=== PATIENT | female | born 1990 | race African-American/Black ===

== ENCOUNTER 2018-03-30 19:09 | Emergency (ER) | payer MEDICAID ==
[~2018-03-30] VITALS: Ht 167.6 cm; Wt 48.0 kg
[2018-03-30] MEDS ORDERED: SODIUM CHLORIDE 0.9% 1,000 ML IV ONE (20:45)
[2018-03-30] MEDS ORDERED: ONDANSETRON HCL 4MG/2ML VIAL IV ONE (20:45)
[2018-03-30 21:07] LABS: CHLORIDE 100 mEq/L (98-107)
[2018-03-30 21:14] LABS: BETA HYDROXYBUTYRATE 0.7 mMol/L (0.0-0.3)
[2018-03-31] MEDS ORDERED: POTASSIUM CHLORIDE 20MEQ TABLET SR PO SCH (00:36)
[2018-03-31] MEDS ORDERED: ONDANSETRON 4MG ODT PO ONE (00:45)
[2018-03-31 01:44] VITALS: BP 101/59
== END 2018-03-31 01:44 | disposition home or self-care (01) ==
LOC: ER 20:12
DX: O21.0 Mild hyperemesis gravidarum (principal); O26.891 Other specified pregnancy related conditions, first trimester; R10.13 Epigastric pain; Z3A.01 Less than 8 weeks gestation of pregnancy; Z88.0 Allergy status to penicillin
CPT/HCPCS: 36415; 80048; 82010; 96361; 96374; 99285; J2405; J7030; Q0162; Z7610

== ENCOUNTER 2018-04-01 11:20 | Observation (INO) | payer MEDICAID ==
[~2018-04-01] VITALS: Ht 152.4 cm; Wt 44.0 kg
[2018-04-01] MEDS ORDERED: ONDANSETRON HCL 4MG/2ML VIAL IV ONE (11:30)
[2018-04-01] MEDS ORDERED: SODIUM CHLORIDE 0.9% 1,000 ML IV ONE ×3 (11:30→12:09)
[2018-04-01] MEDS ORDERED: PYRIDOXINE 100 MG/ML 1ML IM ONE (12:15)
[2018-04-01 12:56] LABS: BASOPHILS % 0.6 % (0.0-2.0); EOSINOPHILS % 0.2 % (0.0-5.0); HEMATOCRIT. 34.9 % (36.0-48.0); HEMOGLOBIN. 11.1 g/dL (12.0-16.0); LYMPHOCYTES % 47.6 % (20.0-50.0); MEAN CORPUSCULAR HEMOGLOBIN 22.9 pg (28.0-32.0); MEAN PLATELET VOLUME 8.2 fl (7.4-10.4); MONOCYTES % 9.5 % (2.0-8.0); NEUTROPHILS % 42.1 % (40.0-76.0); PLATELET 228 x1000/uL (130-400); RED BLOOD CELL COUNT 4.85 mill/uL (4.2-5.4); RED CELL DISTRIBUTION WIDTH 14.7 % (11.6-14.6)
[2018-04-01 13:00] LABS: CHLORIDE 103 mEq/L (98-107)
[2018-04-01 13:24] LABS: B-HCG QUANTITATIVE 52661 mIU/mL (<3)
[2018-04-01 13:24] LABS: CLARITY URINE CLEAR (CLEAR); COLOR URINE DARK YELLOW (YELLOW); KETONES URINE 4+ (NEGATIVE); LEUKOCYTE ESTERASE URINE TRACE (NEGATIVE); NITRITE URINE NEGATIVE (NEGATIVE); OCCULT BLOOD URINE NEGATIVE (NEGATIVE); PH URINE 6.5 (4.5-8.0); PROTEIN URINE TRACE (NEGATIVE); SPECIFIC GRAVITY URINE 1.029 (1.005-1.030)
[2018-04-01] MEDS ORDERED: DEXT 5%/0.45% NACL KCL 40MEQ/L 1,000 ML IV ONE (17:30)
[2018-04-01 20:00] VITALS: BP 114/75
[2018-04-01 21:00] VITALS: BP 114/75
[2018-04-01] MEDS: ONDANSETRON HCL 4MG/2ML VIAL IV PRN (23:51)
[2018-04-01] MEDS: LACTATED RINGERS 1,000 ML IV SCH (23:52)
[2018-04-02] VITALS (7 sets, daily range): BP systolic 106–115; BP diastolic 61–73
[2018-04-02] MEDS: ONDANSETRON HCL 4MG/2ML VIAL IV PRN (05:06)
[2018-04-02] MEDS ORDERED: ONDA4TAB5 PO (05:51)
[2018-04-02] MEDS: LACTATED RINGERS 1,000 ML IV SCH ×2 (08:07→16:00)
[2018-04-02] MEDS ORDERED: LACTATED RINGERS 1,000 ML IV ONE (12:00)
[2018-04-02 15:21] LABS: CHLORIDE 101 mEq/L (98-107)
[2018-04-02] MEDS ORDERED: METO-293 PO (22:37)
== END 2018-04-02 23:20 | disposition home or self-care (01) ==
LOC: ER 11:53 → INTOOBSV 18:18 → 6EST 18:18 → EDBEDREQTM 18:19 → EDBEDREQ 18:19 → ENRESERV 18:38
PROVIDERS: ADMIT Obstetrics & Gynecology; ATTEND Obstetrics & Gynecology
DX: O21.0 Mild hyperemesis gravidarum (principal); O99.331 Smoking (tobacco) complicating pregnancy, first trimester; N83.201 Unspecified ovarian cyst, right side; Z3A.01 Less than 8 weeks gestation of pregnancy
CPT/HCPCS: 36415; 76801; 76817; 80048; 80053; 81003; 84443; 84702; 85025; 86850; 86900; 86901; 96361; 96365; 96366; 96372; 96375; 96376; 99285; G0378; J2405; J3415; J7030; J7120